=== PATIENT | male | born 1970 | race Caucasian/White ===

== ENCOUNTER 2016-11-05 08:56 | Emergency (ER) | payer OTHER ==
[2016-11-05 09:03] VITALS: BP 143/78
[2016-11-05] MEDS ORDERED: SOLU-MEDROL IV ONE (09:37)
--- NOTE | 2016-11-05 09:37 | PROVIDER DOCUMENTATION ---
HPI-Rash/Wound/ReCheck - General Source: patient - History of Present Illness-Dermatology Location: reports: generalized Quality: reports: none Severity: reports: mild Onset/Duration: reports: just prior to arrival Timing: reports: still present, intermittent Context/Associated Symptoms: reports: rash Identifiable cause?: No Exposure: reports: unknown cause Similar Symptoms Previously?: Yes Recently seen or treated by another doctor?: No <Eva Cullen - Last Filed: 11/05/16 09:32> <Bijan Cast - Last Filed: 11/05/16 11:49> - General Chief Complaint: Allergic Reaction Stated Complaint: ALLERGIC REACTION Time Seen by Provider: 11/05/16 09:32 Allergies/Adverse Reactions: Allergies Allergy/AdvReac Type Severity Reaction Status Date / Time strawberry Allergy HIVES Verified 11/05/16 09:03 Home Medications: Home Medication List Medication Instructions Recorded Confirmed Last Taken Type Diphenhydramine [Benadryl] 25 mg PO Q4-6H PRN PRN #30 capsule 11/05/16 Unknown Rx Famotidine [Pepcid] 40 mg PO DAILY #30 tablet 11/05/16 Unknown Rx Prednisone 20 mg PO BID #30 tablet 11/05/16 Unknown Rx - History of Present Illness-Dermatology Nature of Presenting Problem: Pt is 46 y/o M presents to the ED with allergic reaction. Pt states going to urgent care prior to coming to ED and receiving a steroid shot and Benadryl. 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 Pt states feeling like his throat is closing up. Pt denies F. (Eva Cullen) Review of Systems - Adult - REVIEW OF SYSTEMS - ADULT Constitutional: denies: chills, fever Eyes: denies: discharge, blurred vision, double vision Ears, Nose, Mouth & Throat: denies: ear pain, nose pain, throat pain Cardiovascular: reports: irregular heart rate (tachy). denies: chest pain, heart murmur Respiratory: denies: cough, shortness of breath, wheezing Gastrointestinal: denies: abdominal pain, diarrhea, nausea, vomiting Genitourinary: denies: dysuria, hematuria Musculoskeletal: denies: bone pain, joint pain, neck pain Integumentary: reports: rash. denies: hives, itching Neurological: denies: dizziness/vertigo, headache/migraines Psychiatric: denies: anxiety, depression Endocrine: reports: no symptoms reported Hematologic/Lymphatic: reports: no symptoms reported Allergic/Immunologic: reports: no symptoms reported All Other Systems: Reviewed and Negative <Joanie Culleni - Last Filed: 11/05/16 09:32> Past History - Adult - PAST MEDICAL HISTORY-ADULT Review of Records: reports: Nursing Assessment Review, Medications Reviewed, Social history reviewed & non-contributory. Major Childhood Illnesses: reports: denies history Cardiovascular: reports: denies history Respiratory: reports: denies history Gastrointestinal: reports: denies history Obstetrical/Gynecological: reports: denies history Genitourinary: reports: denies history Musculoskeletal: reports: denies history Neurological: reports: denies history Endocrine/Immune: reports: denies history Other Conditions: reports: denies history - PRIOR SURGERIES/PROCEDURES Surgical/Procedure History: reports: reviewed, not pertinent - IMMUNIZATION STATUS Childhood Immunizations: See Nurse Assessment Flu Vaccine: See Nurse Assessment - FAMILY HISTORY Family History: reviewed, not pertinent - SOCIAL HISTORY Smoking: denies Substance Use: denies Living Situation: family <Eva Cullen - Last Filed: 11/05/16 09:32> Physical Exam-General - PHYSICAL EXAM-ADULT Initial Vital Signs Reviewed: Yes - CONSTITUTIONAL General Appearance: appears well, alert, no apparent distress - EYES Eyes: PERRL/EOMI, pink conjunctivae, fundi clear, no AV nicking - HEAD, EARS, NOSE, MOUTH & THROAT HENMT: normocephalic/atraumatic, moist mucous membranes, normal ENT inspection, TMs normal, pharynx normal - NECK Neck: non-tender, full range of motion, supple, normal inspection - RESPIRATORY Respiratory: chest non-tender, lungs clear, normal breath sounds, no pleuratic chest pain, no respiratory distress, no accessory muscle use - CARDIOVASCULAR Cardiovascular: normal peripheral pulses, no edema, no gallop, no JVD, no murmur , tachycardia - GASTROINTESTINAL (ABDOMEN) Abdominal Exam: normal bowel sounds, non tender, soft, no organomegaly, no pulsatile mass - LYMPHATIC Lymphatic: no adenopathy - MUSCULOSKELETAL Back Exam: normal inspection, no CVA tenderness, no vertebral tenderness Extremity: normal range of motion, non-tender, normal gait, normal inspection, no pedal edema, no calf tenderness, normal capillary refill - SKIN Integumentary: normal color, normal turgor, warm/dry, rash (generalized) - NEUROLOGIC Neurologic: grossly normal - PSYCHIATRIC Psych/Mental Status: normal mood/affect, oriented x 3 <Eva Cullen - Last Filed: 11/05/16 09:32> Progress <Eva Cullen - Last Filed: 11/05/16 09:32> <Bijan Cast - Last Filed: 11/05/16 11:49> - PLAN OF CARE/RESULTS Progress/Plan/Lab Results: Orders Category Date Time Status Methylprednisolone Sod Succ [Solu-Medrol] Med 11/05/16 09:37 Discontinued 125 mg IV NOW ONE Vital Signs - 24 hr 11/05/16 08:59 Temperature 98.7 F Pulse Rate 103 H Respiratory 20 Rate Blood Pressure 143/78 O2 Sat by Pulse 100 Oximetry (Eva Cullen) Departure <Eva Cullen - Last Filed: 11/05/16 09:32> - Departure Time of Disposition Order: 11:44 Certified Medical Emergency: Emergent <Bijan Cast - Last Filed: 11/05/16 11:49> - Departure DIAGNOSIS: Urticaria due to food allergy Disposition: HOME 01 Condition: Stable Additional Instructions: ED Follow Up Instructions: You have been treated by a care provider in the Emergency Department. These instructions are being provided to you so you can have an understanding of how to care for yourself upon discharge. Upon discharge from the Emergency Department, you are responsible for making arrangements for follow-up care by a physician of your choice. Take all prescribed medications as directed. Return to the Emergency Department immediately for any new or worsening symptoms. You may call the Physician Referral phone number at [phone] to obtain a list of Physicians who are taking new patients. Prescriptions: Diphenhydramine [Benadryl] 25 mg PO Q4-6H PRN PRN #30 capsule PRN Reason: Itching Famotidine [Pepcid] 40 mg PO DAILY #30 tablet Prednisone 20 mg PO BID #30 tablet Referrals: Idris Gerber MD [Primary Care Provider] - Attestation - Scribe Verification/Attestation Scribe:: Eva Cullen Acting as Scribe for:: Bijan Cast Scribe documention review:: This chart was documented by a scribe and accurately reflects the service the provider performed and the decisions made by the provider. <Eva Cullen - Last Filed: 11/05/16 09:32> Physician Attestation
[2016-11-05] MEDS ORDERED: PEPCID IV ONE (10:21)
[2016-11-05] MEDS ORDERED: SODIUM CHLORIDE 0.9% INJ ONE (10:21)
[2016-11-05] MEDS ORDERED: BENADRYL IV ONE (10:22)
== END 2016-11-05 12:16 | disposition home or self-care (01) ==
LOC: P.ED 08:56
DX: L50.0 Allergic urticaria (principal); R21 Rash and other nonspecific skin eruption; R00.0 Tachycardia, unspecified
CPT/HCPCS: J1200; J2930; S0028